=== PATIENT | male | born 1950 | race Caucasian/White ===

== ENCOUNTER → 2016-07-08 | Outpatient (CLI) | payer OTHER ==
[~2016-07-08] MED LIST: ASCO100061 PO; ASPI81TA28 PO; COEN1CAP17 PO; CRS20 PO; FELO10TA2 PO; HYDC25 PO; MULT-513 PO; POTA10CA28 PO; PRLSR20 PO; PRS5 PO
[2016-07-08 13:41] LABS: BLOOD UREA NITROGEN 19 mg/dl (7-18); BUN/CREATININE RATIO 21.7 (10-20); CALCIUM 8.7 mg/dl (8.5-10.1); CARBON DIOXIDE 29 mmol/L (21-32); CHLORIDE 101 mmol/L (98-107); CREATININE 0.88 mg/dl (0.60-1.40); GLUCOSE 178 mg/dl (70-99); POTASSIUM 3.7 mmol/L (3.5-5.1); SODIUM 140 mmol/L (136-145)
[2016-07-08 14:02] LABS: ESTIMATED AVERAGE GLUCOSE 148 mg/dl; HA1C FLAG Normal (Normal)
== END | disposition home or self-care (01) ==
LOC: C.LABPVFM 08:34
PROVIDERS: ATTEND Nurse Practitioner
DX: E11.9 Type 2 diabetes mellitus without complications (principal); I10 Essential (primary) hypertension

== ENCOUNTER → 2017-01-29 | Outpatient (CLI) | payer OTHER ==
[2017-01-29 13:45] LABS: BLOOD UREA NITROGEN 17 mg/dl (7-18); BUN/CREATININE RATIO 16.9 (10-20); CALCIUM 9.4 mg/dl (8.5-10.1); CARBON DIOXIDE 30 mmol/L (21-32); CHLORIDE 102 mmol/L (98-107); GLUCOSE 168 mg/dl (70-99); POTASSIUM 3.5 mmol/L (3.5-5.1); SODIUM 138 mmol/L (136-145)
[2017-01-29 13:48] LABS: CHOLESTEROL 152 mg/dl (0-200); CHOLESTEROL/HDL RATIO 3.6; ESTIMATED AVERAGE GLUCOSE 163 mg/dl; HA1C FLAG Normal (Normal); HDL CHOLESTEROL 42 mg/dl; LDL CHOLESTEROL CALCULATED 82 mg/dl; TRIGLYCERIDES 139 mg/dl (0-150); VERY LOW DENSITY LIPOPROT CALC 28 mg/dl
== END | disposition home or self-care (01) ==
LOC: C.LABPVFM 08:11
PROVIDERS: ATTEND Nurse Practitioner
DX: I10 Essential (primary) hypertension (principal); E11.9 Type 2 diabetes mellitus without complications; E78.00 Pure hypercholesterolemia, unspecified

== ENCOUNTER → 2017-05-21 | Outpatient (CLI) | payer OTHER ==
--- NOTE | 2017-05-21 08:24 | DIAGNOSTIC IMAGING REPORT ---
ABDOMEN LIMITED (US) CLINICAL HISTORY: 67 years-old Male presenting with R10.811 Right upper quadrant abdominal tenderness. TECHNIQUE: Real-time grayscale and limited color Doppler ultrasound imaging of the abdomen limited to the right upper quadrant was performed. COMPARISON: 07/08/2011. FINDINGS: Pancreas: Visualized portions of the pancreatic head and body normal. Liver: Redemonstration of lobular simple appearing hepatic cyst in the right hepatic lobe measuring 6.3 x 4.9 x 4.8 cm. Remainder of liver parenchyma normal in echogenicity and echotexture. Main portal vein patent with normal directional flow. Biliary: No intrahepatic biliary ductal dilatation. Common bile duct measures up to 3 mm in diameter. Gallbladder: Small echogenic dependent 7 mm focus in the gallbladder without definite shadowing, possibly gallstones versus cholesterol polyp. Right kidney: Exophytic 2.4 centimeter cyst at the interpolar region of the right kidney. Additional cyst noted at the lower pole. No hydronephrosis. Ascites: None. IMPRESSION: No sonographic evidence of acute pathology in the right upper quadrant. Subcentimeter gallbladder cholesterol polyp versus gallstone. No biliary ductal dilatation or evidence of cholecystitis. Electronically signed by: Tejas Parker M.D. 05/21/2017 8:23 AM Dictated Date/Time: 05/21/2017 8:19 AM
== END | disposition home or self-care (01) ==
LOC: C.ULTR 07:36
PROVIDERS: ATTEND Family Medicine
DX: R10.811 Right upper quadrant abdominal tenderness (principal)

== ENCOUNTER → 2017-05-24 | Outpatient (CLI) | payer OTHER | END | disposition home or self-care (01) | LOC: C.LABPVFM 08:18 | PROVIDERS: ATTEND Family Medicine | DX: K76.89 Other specified diseases of liver (principal) ==

== ENCOUNTER → 2017-05-31 | Outpatient (CLI) | payer OTHER ==
--- NOTE | 2017-05-31 07:36 | DIAGNOSTIC IMAGING REPORT ---
CT SCAN OF THE ABDOMEN AND PELVIS WITHOUT CONTRAST CLINICAL HISTORY: HEPATIC CYST COMPARISON STUDY: Ultrasound dated 05/21/2017, CT scan dated 07/01/2007 TECHNIQUE: CT scan of the abdomen and pelvis was performed from the lung bases to the proximal femurs. Images are reviewed in the axial, sagittal, and coronal planes. IV contrast was not administered for this examination. A dose lowering technique was utilized adhering to the principles of ALARA. CT DOSE: 579.90 mGy.cm FINDINGS: Lower chest: There is trace pericardial fluid. There are minor dependent atelectatic changes. Liver: There is a 7 cm right lobe hepatic cyst. There is a to small to characterize 6 mm hypodensity within the right lobe of the liver immediately beneath the dome of the diaphragm. This likely represents a second cyst. Gallbladder: Cholelithiasis Spleen: There is splenic masses are visualized. Surgical clips are visualized at the inferior aspect of the spleen Pancreas: Unremarkable. Adrenal glands: There are surgical clips the region of the left adrenal gland. The patient appears be status post adrenalectomy. The right adrenal gland is unremarkable in appearance Kidneys: No renal, ureteral, or bladder calculi are visualized. There is a 24 mm mid pole right renal cyst. The 17 mm lower pole right renal cyst. Bowel: There are no transition zones indicate bowel obstruction. There is colonic diverticulosis. There are no acute peridiverticular inflammatory changes. By history the appendix is surgically absent. Peritoneum: There is a fat-containing left inguinal hernia. There is no free air. There is no ascites Vasculature: The abdominal aorta is normal in course and caliber. Adenopathy: None. Pelvic viscera: There is mild prostamegaly. There is minor bladder wall thickening. Skeletal structures: No destructive osseous lesions are seen. IMPRESSION: 1. Postsurgical changes of a prior adrenalectomy 2. Hepatic cysts, the largest of which measures 7 cm 3. Cholelithiasis 4. Right renal cysts 5. No evidence of bowel obstruction. No evidence of free air Electronically signed by: Emmanuel Owusu M.D. 05/31/2017 7:35 AM Dictated Date/Time: 05/31/2017 7:29 AM
== END | disposition home or self-care (01) ==
LOC: C.CTS 07:07
PROVIDERS: ATTEND Family Medicine
DX: K76.89 Other specified diseases of liver (principal); R10.11 Right upper quadrant pain; R93.2 Abnormal findings on diagnostic imaging of liver and biliary tract; Z90.89 Acquired absence of other organs; K80.20 Calculus of gallbladder without cholecystitis without obstruction; N28.1 Cyst of kidney, acquired

== ENCOUNTER → 2017-07-26 | Outpatient (CLI) | payer OTHER | END | disposition home or self-care (01) | LOC: C.LABPVFM 09:40 | PROVIDERS: ATTEND Nurse Practitioner | DX: Z87.898 Personal history of other specified conditions (principal) ==

== ENCOUNTER → 2018-02-08 | Outpatient (CLI) | payer OTHER ==
[2018-02-08 13:17] LABS: BLOOD UREA NITROGEN 19 mg/dl (7-18); CREATININE 0.75 mg/dl (0.60-1.40); GLUCOSE 153 mg/dl (70-99)
[2018-02-08 13:18] LABS: ALKALINE PHOSPHATASE 50 U/L (45-117); ALT/SGPT 27 U/L (12-78); AST/SGOT 24 U/L (15-37); CALCIUM 9.1 mg/dl (8.5-10.1); CARBON DIOXIDE 29 mmol/L (21-32); HEMOGLOBIN A1C 6.2 % (4.5-5.6); POTASSIUM 3.4 mmol/L (3.5-5.1); SODIUM 138 mmol/L (136-145); TOTAL PROTEIN 7.5 gm/dl (6.4-8.2)
== END | disposition home or self-care (01) ==
LOC: C.LABPVFM 07:48
PROVIDERS: ATTEND Nurse Practitioner
DX: E78.00 Pure hypercholesterolemia, unspecified (principal); E11.9 Type 2 diabetes mellitus without complications

== ENCOUNTER 2021-01-10 06:24 | Observation (INO) ==
--- NOTE | 2020-12-24 16:39 | PAT Medication Instructions ---
Medication Instructions Date of Service December 24, 2020 Home Medications Medication Instructions Recorded rosuvastatin 20 mg tablet 20 mg PO QPM #90 tab 06/04/20 doxycycline monohydrate 100 mg 100 mg PO BID #14 cap 06/11/20 capsule aspirin 81 mg tablet,delayed release 81 mg PO HS coenzyme Q10 100 mg capsule 100 mg PO QAM multivitamin 1 tab PO QAM alogliptin 25 mg tablet 25 mg PO QAM glucosamine-chondroitin 250 mg-200 mg tablet 2 tab PO QAM rosuvastatin 20 mg tablet 20 mg PO QPM doxycycline monohydrate 100 mg capsule 100 mg PO BID ascorbic acid (vitamin C) [Vitamin C] 1,000 mg PO HS epinephrine 0.3 ml IM UD PRN felodipine 10 mg PO HS finasteride 5 mg PO QAM ketoconazole 1 applic TOPICAL WK PRN lisinopril 10 mg PO QAM omeprazole 20 mg PO QAM Continue as directed doxycycline monohydrate 100 mg capsule 100 mg PO BID epinephrine 0.3 ml IM UD PRN (if needed) STOP taking 2 weeks before surgery coenzyme Q10 100 mg capsule 100 mg PO QAM glucosamine-chondroitin 250 mg-200 mg tablet 2 tab PO QAM STOP taking 24 hours before surgery ketoconazole 1 applic TOPICAL WK PRN DO NOT take the morning of surgery multivitamin 1 tab PO QAM alogliptin 25 mg tablet 25 mg PO QAM lisinopril 10 mg PO QAM Take morning of surgery With a small sip of water, OTHERWISE NOTHING TO EAT OR DRINK AFTER MIDNIGHT: finasteride 5 mg PO QAM omeprazole 20 mg PO QAM Take evening before surgery aspirin 81 mg tablet,delayed release 81 mg PO HS (unless surgeon directs otherwise) rosuvastatin 20 mg tablet 20 mg PO QPM ascorbic acid (vitamin C) [Vitamin C] 1,000 mg PO HS felodipine 10 mg PO HS Other Notes If you have any questions please call us at [phone] or [phone] or [phone] or [phone]
--- NOTE | 2020-12-26 11:42 | Anesthesiology Consultation ---
Date of Service December 26, 2020 Assessment & Plan (1) Encounter for pre-operative examination: Chart Review Chart Review: Acceptable Risk for Surgery (pending cardio office visit note from 12/27/20 and preop Covid testing results ) and Patient seen in Pre Admission Testing Awaiting cardio appt scheduled 12/27/20 - Check BSG AM DOS Per PAT appointment 12/26/2020, patient denies any recent travel. Wears proper PPE when required. Patient vaccinated for Covid. No known Covid infection in the past 90 days. No known Covid positive contacts or Covid related symptoms. Preop Covid testing scheduled 01/08/21= will await results. Educated on importance of self quarantining, social distancing and wearing mask in public both for the patient after Covid testing done Teaching & Discussion Pre-Anesthesia Teaching/Discussion Notes: Instructed NPO after midnight before surgery,except medications with 15 cc of water. Medication instructions provided according to the [facility] guidelines. History Surgery Operation Date: 01/10/21 11:30 Proposed Procedures p Right Total Shoulder Arthroplasty Jada - Bill Medrano DO Height/Weight Height: 5 ft 9.5 in Weight: 82.3 kg Allergies Allergy/AdvReac Type Severity Reaction Status Date / Time bee venom protein (honey bee) Allergy Severe ANAPHYLAXIS Verified 12/24/20 07:09 metformin AdvReac Intermediate Abdominal Verified 12/24/20 07:10 Pain Iodinated Contrast Media AdvReac Unknown contraindicated Verified 12/24/20 07:09 /had adrenal gland removed Medications Home Medications Medication Instructions Recorded Confirmed Last Taken aspirin 81 mg tablet,delayed 81 mg PO HS tab 01/21/19 12/24/20 Unknown release coenzyme Q10 100 mg capsule 100 mg PO QAM cap 01/21/19 12/24/20 Unknown multivitamin 1 tab PO QAM 01/21/19 12/24/20 Unknown alogliptin 25 mg tablet 25 mg PO QAM 01/27/19 12/24/20 Unknown glucosamine-chondroitin 250 mg-200 2 tab PO QAM tab 02/10/19 12/24/20 Unknown mg tablet rosuvastatin 20 mg tablet 20 mg PO QPM #90 tab 06/04/20 12/24/20 Unknown doxycycline monohydrate 100 mg 100 mg PO BID #14 cap 06/11/20 12/24/20 Unknown capsule ascorbic acid (vitamin C) [Vitamin 1,000 mg PO HS 12/24/20 12/24/20 Unknown C] epinephrine 0.3 ml IM UD PRN 12/24/20 12/24/20 Unknown felodipine 10 mg PO HS 12/24/20 12/24/20 Unknown finasteride 5 mg PO QAM 12/24/20 12/24/20 Unknown ketoconazole 1 applic TOPICAL WK PRN 12/24/20 12/24/20 Unknown lisinopril 10 mg PO QAM 12/24/20 12/24/20 Unknown omeprazole 20 mg PO QAM 12/24/20 12/24/20 Unknown Past Medical History Medical History (Updated 12/27/20 @ 08:56 by Urvashi Chapman PA-C) Acid reflux disease Well controlled and stable Allergic rhinitis Concussion 2015- significant Does have residual issues with equilibrium occasionally on uneven surfaces Diabetes mellitus, type 2 NIDDM Glucose fluctuates Hepatic cyst Monitors annually- currently under observation with GI History of COVID-19 05/2020. tested positive through [facility]. sinus congestion and chest cold and fatigue. still will notice he will get SOB with exertion. no hospitalization. 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- no issues since that time Hypercholesterolemia Hypertension Osteoarthritis Exercise / Class Metabolic Activity II 4-5 Yardwork/Stairs/Walk up hill (one flight of stairs - no chest pain or SOB ) Past Family History Family History Son Bipolar disorder Father Coronary heart disease Myocardial infarction Mother Blood dyscrasia Grandfather (Maternal) Diabetes Other Heart disease Hypertension No family history of adverse response to anesthesia Denies family history of Ovarian cancer Prostate cancer Breast cancer Colorectal cancer Past Surgical History Surgical History H/O arthroscopy of left knee History of appendectomy History of colonoscopy History of esophagogastroduodenoscopy (EGD) History of right inguinal hernia repair (~2011) History of total adrenalectomy (~2007) [facility] Past Anesthesia History No Hx of Anesthesia Complications and No Family Hx of Anesthesia Complications History of PONV No Hx of PONV and No Hx of Motion Sickness Social History Smoking Status: Former smoker tobacco type: cigarettes Do You Dip or Chew Tobacco: No Smoking End Date: Hx Alcohol Use: Yes Alcohol type: beer alcohol intake frequency: holidays/special occasions only Hx Substance Use: No substance use type: does not use Review of Systems Occ palpitations - stable Patient denies chest pain, shortness of breath, dyspnea on exertion, cough, wheezing, palpitations. No hx of seizures, stroke, CT, apnea/snoring. No hx of blood clots or blood transfusions Physical Exam Vital Signs VITALS BP 138/82 P 85 TEMP 98.0 SP02 96% RESP 16 Constitutional no acute distress ENMT Mouth: no TMJ clicking Thyromental Distance: > or= 3.5 Finger Breadths (3.5) Mallampati Class: III Mouth / Teeth: 1. Permanent implant 2. Permanent implant 3. Permanent implant 4. Missing 5. [place] Missing molars Neck + limited neck extension (minimal ) Respiratory normal respiratory effort; no respiratory distress Auscultation: lungs clear to auscultation bilaterally; no wheezes Cardiovascular Rate/Rhythm: regular rate and regular rhythm Heart Sounds: no murmur Vessels: no carotid bruit Musculoskeletal Spine: no pain with cervical ROM Extremities: extremities normal to inspection Psychiatric Orientation: alert Lab Results Anesthesia Preop Results Results Anesthesia Widget: 2 WBC 7.73 K/uL (4.8-10.8) 12/26/20 Hgb 15.3 g/dL (14.0-18.0) 12/26/20 Hct 43.1 % (42-52) 12/26/20 Plt 207 K/uL (130-400) 12/26/20 Na 138 mmol/L (136-145) 12/26/20 K 3.7 mmol/L (3.5-5.1) 12/26/20 Cl 103 mmol/L (98-107) 12/26/20 CO2 32 mmol/L (21-32) 12/26/20 BUN 20 mg/dl (7-18) H 12/26/20 Creat 0.77 mg/dl (0.6-1.4) 12/26/20 Glucose Level 129 mg/dl (70-99) H 12/26/20 PT 9.7 Seconds (9.0-12.0) 12/26/20 PTT 23.2 Seconds (21.0-31.0) 12/26/20 INR 1.0 (0.9-1.1) 12/26/20 HA1c 6.6 % (4.5-5.6) H 12/26/20 Blood Type A Positive 12/26/20 Antibody Screen NEGATIVE 12/26/20 Testing Electrocardiogram Date: 12/26/20 Findings: + NSR @ (83bpm) Normal EKG per cardio. Chest X-Ray Date: 12/26/20 Findings: + NAD
--- NOTE | 2021-01-09 11:10 | History & Physical Report ---
Date of Service January 09, 2021 Assessment & Plan (1) Rotator cuff tear, right: We will proceed with a right reverse shoulder arthroplasty. Postoperatively he will be placed in a sling and kept overnight in the hospital for postoperative medical management. He plans to use energy physical therapy upon discharge. History of Present Illness Chief Complaint: Cuff arthropathy of the right shoulder. Primary Care Provider: JARED Hatfield Sukhdev is a pleasant 70-year-old male who had an injury to his right shoulder while bowling and then another injury while coughing. He has very limited range of motion of his shoulder. MRI showed a large retracted rotator cuff tear and significant atrophy of the supraspinatus and infraspinatus. There was some arthritis of the glenohumeral joint. After failing conservative treatment, he elected proceed with a right reverse shoulder arthroplasty.. Allergies Allergy/AdvReac Type Severity Reaction Status Date / Time bee venom protein (honey bee) Allergy Severe ANAPHYLAXIS Verified 12/27/20 10:58 metformin AdvReac Intermediate Abdominal Verified 12/27/20 10:58 Pain Iodinated Contrast Media AdvReac Unknown contraindicated Verified 12/27/20 10:58 /had adrenal gland removed Home Medications Medication Instructions Recorded Confirmed Type aspirin 81 mg tablet,delayed 81 mg PO HS tab 01/21/19 12/27/20 History release coenzyme Q10 100 mg capsule 100 mg PO QAM cap 01/21/19 12/27/20 History multivitamin (Daily Multi-Vitamin) 1 tab PO QAM 01/21/19 12/27/20 History alogliptin 25 mg tablet (Nesina) 25 mg PO QAM 01/27/19 12/27/20 History glucosamine-chondroitin 250 mg-200 2 tab PO QAM tab 02/10/19 12/27/20 History mg tablet (Osteo Bi-Flex) rosuvastatin 20 mg tablet 20 mg PO QPM #90 tab 06/04/20 12/27/20 Rx ascorbic acid (vitamin C) 1,000 mg 1,000 mg PO HS 12/24/20 12/27/20 History tablet,extended release (Vitamin C ER) epinephrine 0.3 mg/0.3 mL 0.3 ml IM UD PRN 12/24/20 12/27/20 History injection, auto-injector felodipine 10 mg tablet,extended 10 mg PO HS 12/24/20 12/27/20 History release 24 hr finasteride 5 mg tablet 5 mg PO QAM 12/24/20 12/27/20 History ketoconazole 1 % shampoo 1 applic TOPICAL WK PRN 12/24/20 12/27/20 History lisinopril 10 mg tablet 10 mg PO QAM 12/24/20 12/27/20 History omeprazole 20 mg capsule,delayed 20 mg PO QAM 12/24/20 12/27/20 History release diclofenac sodium 75 mg 75 mg PO BID 12/27/20 12/27/20 History tablet,delayed release Past Med/Surg History Medical History Acid reflux disease Well controlled and stable Allergic rhinitis Concussion 2016- significant Does have residual issues with equilibrium occasionally on uneven surfaces Diabetes mellitus, type 2 NIDDM Glucose fluctuates Hepatic cyst Monitors annually- currently under observation with GI History of COVID-19 05/2020. tested positive through [facility]. sinus congestion and chest cold and fatigue. still will notice he will get SOB with exertion. no hospitalization. 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- no issues since that time Hypercholesterolemia Hypertension Osteoarthritis Surgical History H/O arthroscopy of left knee History of appendectomy History of colonoscopy History of esophagogastroduodenoscopy (EGD) History of right inguinal hernia repair (~2011) History of total adrenalectomy (~2007) [facility] [place] Family History Son Bipolar disorder Father Coronary heart disease Myocardial infarction Mother Blood dyscrasia Grandfather (Maternal) Diabetes Other Heart disease Hypertension No family history of adverse response to anesthesia Denies family history of Ovarian cancer Prostate cancer Breast cancer Colorectal cancer Social History Smoking Status: Former smoker Second Hand Exposure: No; Hx Alcohol Use: Yes Alcohol type: beer Hx Substance Use: No Preferred Language: Croatian Communication Ability: Effective Pearl Hand Required: No Beliefs That Will Affect Care: None marital status: Current Living Situation: Spouse current occupational status: retired Feels Safe at Home: Yes Childhood Exposure to Second-Hand Smoke: No caffeine: Yes Dental Care, Regularly: Yes Physical Activity Frequency: 3-4 Times per Week Seatbelt Use: always Sunscreen Use: Yes Assistive Devices: Glasses and Hearing Aid - Bilateral Review of Systems All systems reviewed & are unremarkable except as noted in HPI & below. Physical Exam On physical examination of the right shoulder, he has near full range of motion. He has 4-5 motor strength with full can testing 4-5 motion with external rotation. Is a negative belly press test.. Constitutional WD/WN, vitals as above Eyes PERRL, conjunctivae normal, anicteric sclerae ENMT external ear and nose normal, oropharynx normal Neck trachea midline, no thyromegaly Respiratory normal respiratory effort Cardiovascular RRR, no murmur, no edema Gastrointestinal (Abdomen) normal bowel sounds, soft, nontender, no hepatosplenomegaly Psychiatric A+Ox3, euthymic affect Results & Data Results & Data Laboratory Results . Diagnostic Findings MRI of the right shoulder does show a large necrotic retracted rotator cuff tear. There is some moderate arthritis of the glenohumeral joint.. PG Care Time/CCT Total # of Minutes Spent Total Time Spent with Patient: Total time spent is greater than 50% in coordination of care (as documented) at patient's floor/unit and/or counseling patient: Coding Level of Care Code None Diagnoses Rotator cuff tear, right M75.101
[~2021-01-10 06:24] MED LIST changes: +ACETAMINOPHEN 500 MG TAB PO SCH; -ASCO100061 PO; -ASPI81TA28 PO; -COEN1CAP17 PO; -CRS20 PO; +FAMOTIDINE 20 MG TAB PO SCH; -FELO10TA2 PO; +GABAPENTIN 300 MG CAP PO SCH; -HYDC25 PO; +LR 15ML/HR IV SCH; +LR 60ML/HR IV SCH; -MULT-513 PO; -POTA10CA28 PO; -PRLSR20 PO; -PRS5 PO; +ROPIVACAINE 0.5% HCL/PF 150 MG, BUPIVACAINE 0.75% MPF 20 ML, EPINEPHrine 30MG/30ML (OR ... INSTIL SCH; +TRANEXAMIC ACID 1,000 MG **IV Intra-op IV SCH; +TRANEXAMIC ACID 1,000 MG **IV Pre-op IV SCH; +ceFAZolin 2000MG 2,000 MG/15 ML SYR IV SCH; +dexAMETHasone 4 MG TAB PO SCH
[2021-01-10] MEDS ORDERED: BUPIVACAINE 0.5 % 5 MG/1 ML PF 10ML VIAL ONE (06:33)
[2021-01-10] MEDS ORDERED: fentaNYL citrate 100 MCG/2 ML VIAL IV PRN (07:59)
[2021-01-10] MEDS ORDERED: PHENYLEPHRINE 100MCG/ML 5ML SYR IV PRN (07:59)
[2021-01-10] MEDS ORDERED: ONDANSETRON INJ 2 MG/ML 2 ML VIAL IV PRN ×2 (07:59→12:58)
[2021-01-10] MEDS ORDERED: HYDROmorphone INJ 1 MG/ML SYRINGE IV PRN (07:59)
[2021-01-10] MEDS ORDERED: MEPERIDINE HCL 25 MG/ML CARP/VIAL IV PRN (07:59)
[2021-01-10] MEDS ORDERED: ePHEDrine sulfate 50 MG/ML AMP IV PRN (07:59)
[2021-01-10] MEDS ORDERED: LABETALOL HCL IV 5 MG/ML 20ML IV PRN (07:59)
[2021-01-10] MEDS ORDERED: ATROPINE SULFATE 0.1 MG/ML 10ML SYR IV PRN (07:59)
[2021-01-10] MEDS ORDERED: MIDAZOLAM HCL 1 MG/ML 2ML VIAL ONE (08:30)
[2021-01-10] MEDS ORDERED: fentaNYL citrate 100 MCG/2 ML VIAL ONE (08:31)
--- NOTE | 2021-01-10 08:31 | History & Physical Bridge Note ---
Date of Service January 10, 2021 History & Physical Bridge Note I have examined the patient, reviewed the History & Physical and in the interval since the performance of the History & Physical I have noted the following changes of clinical significance: no changes noted
[2021-01-10] MEDS ORDERED: ORTHO JOINT ANESTHETIC ONE (08:59)
[2021-01-10] MEDS ORDERED: PROPOFOL IV EMULSION 10 MG/ML 20 ML VIAL IV ONE (09:01)
[2021-01-10] MEDS ORDERED: ONDANSETRON INJ 2 MG/ML 2 ML VIAL ONE (09:01)
[2021-01-10] MEDS ORDERED: LIDOCAINE 2% 2 ML VIAL/AMP(20MG/ML) INFIL ONE (09:01)
[2021-01-10] MEDS ORDERED: DEXAMETHASONE SOD INJ 4 MG/ML VIAL ONE (09:01)
[2021-01-10] MEDS ORDERED: PHENYLEPHRINE 100MCG/ML 5ML SYR ONE (09:51)
[2021-01-10] MEDS ORDERED: PHENYLEPHRINE HCL 10 MG/ML VIAL ONE (10:49)
[2021-01-10] MEDS ORDERED: ePHEDrine sulfate 50 MG/ML SYR ONE (10:49)
--- NOTE | 2021-01-10 10:54 | Operative Report ---
PG Post Operative Report Pre & Post Diagnosis Operation Date: 01/10/21 08:40 Pre-Op Diagnosis: Right shoulder cuff tear arthropathy with tendinopathy long head of the biceps tendon Post-Op Diagnosis: Right shoulder cuff tear arthropathy with tendinopathy of the long head of the biceps tendon I identified the patient and participated in the time-out.: Yes Procedure Operation Date: 01/10/21 08:40 Actual Procedures p Right reverse shoulder arthroplasty uncemented(Right) with open biceps tenodesis as a distinct and separate procedure (modifier 59)- Bill Medrano, Surgeon Bill Medrano, Medicine Assistant Bill Barbosa PAC Estimated Blood Loss 200 Findings Consistent with Post-Op Diagnosis Specimens Right humeral head Complications none Disposition Disposition: Recovery Room Indications Sukhdev is a pleasant 70-year-old male who is been dealing with worsening right shoulder pain and weakness. He injured it while bowling and golfing. MRI showed a large retracted rotator cuff tear. After discussing possible treatment options, we elected proceed with a right reverse shoulder arthroplasty. Description of Procedure A CPT code modifier 59: The long head of the biceps tendon was enlarged and inflamed consistent with tendinopathy. A tenodesis was opted. This was a separate and distinct portion of the procedure. For these reasons, a CPT code modifier 59 will be added to this case. Implants used: I used a Biomet Comprehensive reverse total shoulder arthroplasty system with a size 14 press fit micro humeral stem, a +3 offset humeral tray and a standard humeral bearing, a 25 mm small augment baseplate with a 6.5 mm central screw and superior and inferior locking screws, and a size 40 mm eccentric glenosphere. Sukhdev arrived at [facility] for the above procedure. He was seen in the preoperative holding area and the operative extremity was identified and signed. He was given a preoperative antibiotic, TXA, and an interscalene nerve block. He was taken back to the operating room, laid on table in supine position, and put under general anesthesia. He was then put into the beachchair position. The shoulder was then prepped and draped in sterile fashion. A timeout was done and the patient and the operative extremity was properly identified. A deltopectoral approach was used. Dissection was taken down through the fascia and the deltoid was retracted laterally and the conjoined tendon was retracted medially. The anterior shoulder was exposed. The biceps groove was opened up and the biceps tendon was examined extensively. The biceps tendon demonstrated enlargement and inflammatory changes consistent with longstanding inflammation in the context of osteoarthritis and cuff arthropathy. The long head of the biceps tendon was then tenodesed to the upper border of the pectoralis major. This was a separate and distinct portion of the procedure. The subscapularis was then directly released off the lesser tuberosity with a peel technique. The inferior capsule was released and the humeral head was dislocated. A canal finding reamer was sent down the center of the humeral canal. Sequential reaming up to a size 14 reamer was done. Off that reamer, a proximal humeral resection guide was placed. The proximal humerus was resected at 135 of inclination and 25 of retroversion. Osteophytes were then removed and the glenoid was exposed. Time was spent doing a complete capsular and labral release. The glenoid guide was then placed in the inferior aspect of the glenoid. A 3.2 mm Steinmann pin was then placed into the glenoid vault at 10 of inclination. A ZimMythos Signature One guide was then attached onto the anterior rim of the glenoid. A 3.2 mm Steinmann pin was then placed in the reverse total shoulder arthroplasty hole. The glenoid baseplate was then reamed. The final size 25 mm small augment baseplate was then impacted in the place. A 6.5 mm central screw was then placed followed by superior and inferior locking screws. A 40 mm eccentric glenosphere was then impacted into place. Surrounding soft tissues were then injected with 100 cc an orthopedic pain control cocktail. The proximal humerus was then exposed. Sequential broaching of the humerus up to a size 14 broach was done. Off that broach a +3 offset humeral tray was trialed. The shoulder was then reduced, brought through a full range of motion, and felt to be stable. The shoulder was then dislocated and the broach was removed. The final size 14 micro press-fit humeral stem was then impacted into place. A standard humeral bearing was then snapped onto a +3 offset humeral tray. The humeral tray was then impacted onto the humeral stem. The shoulder was once again reduced, brought through a full range of motion, and felt to be stable. The subscapularis was then tenodesed back to the lesser tuberosity with transosseous FiberWire sutures and side to side sutures with the arm in 45 of external rotation. A dilute betadyne lavage was then done for 3 minutes. The joint was then irrigated with normal saline solution. Hemostasis was obtained. The interval was closed with 2-0 Vicryl suture. The skin was then closed with 2-0 Vicryl and stephanie. A Silverlon dressing was placed and the arm was rested in a regular arm sling. He was then extubated and transferred to a hospital bed. He taken to the postanesthesia care unit in stable condition. He tolerated the procedure well. Bill Barbosa PA-C, was present for the entire procedure. He was critical for patient positioning, prepping, draping, retraction exposure, wound closure and application of sterile dressing. I attest to the content of the Intraoperative Record and any orders documented therein. Any exceptions are noted below.
--- NOTE | 2021-01-10 11:47 | XRay Report ---
XR shoulder RT min 2V routine CLINICAL HISTORY: Post shoulder surgery COMPARISON: Right shoulder radiograph October 30, 2020. FINDINGS: Alignment of the reverse total right shoulder arthroplasty is anatomic. There is no peripr osthetic fracture. There is no unexpected radiopaque foreign body. There are skin stephanie. IMPRESSION: Expected findings following total right shoulder arthroplasty. ACT 112: Negative or not required by law. Electronically signed by: Neo Rodriguez M.D. 01/10/2021 11:46 AM
[2021-01-10] MEDS ORDERED: INSULIN ASPART PER UNIT SC STA (12:00)
--- NOTE | 2021-01-10 12:03 | Anesthesiology Progress Note ---
Date of Service January 10, 2021 Anesthesia Post Procedure Vital Signs Vital Signs: Temp Pulse Pulse Resp BP Pulse Ox 01/10/21 11:55 88 22 117/74 92 01/10/21 11:45 87 20 120/79 96 01/10/21 11:35 90 20 135/80 98 01/10/21 11:25 90 16 132/77 98 01/10/21 11:17 36.0 C L 96 H 11 L 139/81 95 01/10/21 07:05 36.5 C 85 18 142/87 H 96 Transfer of Care Handoff Completed per policy Notes Mental Status: alert / awake / arousable Patient Amnestic to Procedure: Yes Nausea / Vomiting: adequately controlled Pain: adequately controlled Airway Patency, RR, SpO2: stable & adequate BP & HR: stable & adequate Hydration State: stable & adequate Anesthetic Complications: no major complications apparent and Pt Satisfied with anesthetic care Notes: The patient is awake and comfortable. Postop BSG was 203. He will receive Novolog 2 units SC and will have a BSG rechecked on the floor in two hours.
[2021-01-10] MEDS ORDERED: MAGNESIUM HYDROXIDE SUSP 30 ML UDC PO PRN (12:58)
[2021-01-10] MEDS ORDERED: oxyCODONE HCL IR 5 MG TAB (IMMEDIATE RELEASE) PO PRN (12:58)
[2021-01-10] MEDS ORDERED: NALOXONE HCL 0.4 MG/1 ML VIAL/CARP IV PRN (12:58)
[2021-01-10] MEDS ORDERED: HYDROmorphone INJ 0.5 MG/0.5 ML SYR IV PRN (12:58)
[2021-01-10] MEDS ORDERED: METOCLOPRAMIDE HCL INJ 5 MG/ML 2 ML VIAL IV PRN (12:58)
[2021-01-10] MEDS ORDERED: EPINEPHrine INJ 1 MG/ML AMP IM PRN (12:58)
[2021-01-10] MEDS ORDERED: bisacodyL 10 MG SUPP PR PRN (12:58)
[2021-01-10] MEDS: SODIUM CHLORIDE 0.9% 1000ML 1,000 ML IV SCH ×2 (13:01→22:40)
[2021-01-10] MEDS ORDERED: PHARMACY GLYCEMIC MGMT CONSULT PRN (13:50)
[2021-01-10] MEDS ORDERED: NovoLIN-N (NPH) PER UNIT CHARGE SQ ONE (14:15)
[2021-01-10] MEDS: ACETAMINOPHEN 500 MG TAB PO SCH ×2 (14:34→22:41)
[2021-01-10] MEDS: KETOROLAC TROMETHAMINE 15 MG/ML VIAL IV SCH ×2 (14:34→20:49)
--- NOTE | 2021-01-10 14:47 | Pharmacy Report ---
Pharmacy Glycemic Short Note 2 - Date of Service January 10, 2021 - Glycemic Short BSG Results (Last 24 hours): 01/10/21 01/10/21 01/10/21 06:43 11:28 14:28 POC Glucose 154 H 203 H 262 H OUTPATIENT ANTIDIABETIC REGIMEN: * alogliptan * A1c 6.6% ASSESSMENT: * 70 year old male now s/p R shoulder arthroplasty, type 2 diabetic managed only on oral agent at home * Received preop steroids and also intraop - therefore anticipate steroid induced hyperglycemia / will give NPH 30 units x 1 now to help with steroid coverage and then start also a stress of 3 for novolog order PLAN FOR INPATIENT GLYCEMIC CONTROL: * Hold outpatient oral diabetes medications * Basal insulin * NPH 30 units x 1 now * Bolus insulin * NovoLog per scale ACHS or Q6hrs while NPO * Goal Range: Low 110 mg/dL - High 140 mg/dL * Correction Factor: 20 mg/dL/unit * Nutritional / Prandial insulin per carb ratio of 1 unit per 6 grams CHO consumed PLAN FOR DISCHARGE: * A1c 6.6% - goal <7% * Reasonable to continue home diabetic agent on discharge as long as no contraindications exist
[2021-01-10] MEDS: INSULIN ASPART 100 UNITS/ML 3 ML PEN SC SCH ×3 (15:52→20:52)
[2021-01-10] MEDS: ceFAZolin 2000MG 2,000 MG/15 ML SYR IV SCH (17:24)
[2021-01-10] MEDS: DOCUSATE SODIUM 100 MG CAP PO SCH (20:49)
[2021-01-10] MEDS ORDERED: ROSUVASTATIN CALCIUM 20 MG TAB PO SCH (21:00)
[2021-01-10] MEDS ORDERED: FELODIPINE 5 MG TABCR PO SCH (21:00)
[2021-01-10] MEDS ORDERED: ASPIRIN 81 MG ECTAB PO SCH (21:00)
[2021-01-10] MEDS ORDERED: SENNA 8.6 MG TAB PO SCH (21:00)
[2021-01-11] MEDS: INSULIN ASPART 100 UNITS/ML 3 ML PEN SC SCH ×3 (00:12→09:27)
[2021-01-11] MEDS: KETOROLAC TROMETHAMINE 15 MG/ML VIAL IV SCH ×2 (01:49→08:16)
[2021-01-11] MEDS: ceFAZolin 2000MG 2,000 MG/15 ML SYR IV SCH (01:49)
[2021-01-11 03:05] VITALS: O2SAT 94
[2021-01-11] MEDS: ACETAMINOPHEN 500 MG TAB PO SCH (06:05)
--- NOTE | 2021-01-11 07:45 | Orthopedic Progress Note ---
Date of Service January 11, 2021 Assessment & Plan (1) Status post reverse arthroplasty of right shoulder: Overall is doing well. Is not having much pain in the right shoulder. He will be seen by physical therapy today for ambulation and range of motion exercises. He can be discharged home later today. He will follow-up with orthopedics in 2 weeks. Joshua Santizo was seen and examined at bedside this morning. Overall is doing very wel l. Is not having any pain in the right shoulder. The block is wearing off. He has a pinpoint area of tenderness in the central aspect of his back. Otherwise he has no complaints.. Review of Systems All systems reviewed & are unremarkable except as noted in HPI & below. Physical Exam On physical examination of his right shoulder, the dressing is clean and dry. He is wearing his sling as instructed. His radial, median, and ulnar nerves are checked intact at his wrist. His axillary nerve was not checked yet.. Results & Data Results & Data Laboratory Results . Diagnostic Findings Postoperative x-rays of the right shoulder show the prosthesis to be in anatomic alignment without any evidence of fracture, dislocation, or loosening. PG Care Time/CCT Total # of Minutes Spent Total Time Spent with Patient: Total time spent is greater than 50% in coordination of care (as documented) at patient's floor/unit and/or counseling patient: Coding Level of Care Code 74105 Post Operative Follow-Up Diagnoses Status post reverse arthroplasty of right shoulder Z96.611
--- NOTE | 2021-01-11 07:46 | Discharge Summary ---
Date of Service January 11, 2021 Admission HPI (Per Admitting) Sukhdev is a pleasant 70-year-old male who had an injury to his right shoulder while bowling and then another injury while coughing. He has very limited range of motion of his shoulder. MRI showed a large retracted rotator cuff tear and significant atrophy of the supraspinatus and infraspinatus. There was some arthritis of the glenohumeral joint. After failing conservative treatment, he elected proceed with a right reverse shoulder arthroplasty.. Admission Exam (Per Admitting) On physical examination of the right shoulder, he has near full range of motion. He has 4-5 motor strength with full can testing 4-5 motion with external rotation. Is a negative belly press test.. Principal Diagnosis Same as "Discharge Diagnosis" noted below under Discharge Instructions. Discharge Exam On physical examination of his right shoulder, the dressing is clean and dry. He is wearing his sling as instructed. His radial, median, and ulnar nerves are checked intact at his wrist. His axillary nerve was not checked yet.. Discharge Data Procedures Performed Operation Date: 01/10/21 08:40 Actual Procedures p Right Total Shoulder Arthroplasty Reverse, Uncemented(Right) - Bill ahuja DO Ordered Studies 01/10/21 05:00 US - OR guided needle placemen Routine Hospital Course (1) Status post reverse arthroplasty of right shoulder: On January 10, 2021 Sukhdev arrived to [facility] and underwent a right reverse shoulder replacement without complication. He had a general anesthetic and a right interscalene nerve block. Postoperatively he was placed in a sling and transferred to the general orthopedic floors. His hospital course was uneventful. On postop day #1 his vital signs were stable and his pain was well controlled. He was able to participate well with physical therapy doing ambulation and range of motion exercises. He was then discharged home. He will follow-up with orthopedics in 2 weeks. PG Care Time/CCT Total # of Minutes Spent Total Time Spent with Patient: Total time spent is greater than 50% in coordination of care (as documented) at patient's floor/unit and/or counseling patient: Discharge Plan Discharge Items Patient Disposition: Home - Home Health Services Reason For Visit: Right Shoulder Degenerative Joint Disease Discharge Diagnosis: Right reverse shoulder replacement Activity: As commented below Non-emergency contact: Surgeon Call non-emergency contact if: your wound has increased redness and your wound has increased drainage Follow-up/Referrals: Jennifer Back CRNP [Primary Care Provider] - Diet: Regular Addtl Attending Provider Instructions: Activity and Therapy Recommendations: * If you are using [facility] then therapy will be provided at your home until they feel you have accomplished all of your goals. * If you are using [facility] then Physical Therapy will be provided until they feel you are ready to start Outpatient Physical Therapy. * If you are not using home therapy then Outpatient Physical Therapy should start about 3-5 days from your day of surgery. Therapy will last about 8-12 weeks * Wear your sling for 3 weeks, unless otherwise instructed. You may remove your sling to shower and to dress, but otherwise, you should be in your sling at all times, including while sleeping * The shoulder replacement is very stable and you can use your hand while in the sling * You were shown a series of exercises in the hospital. Do these exercises daily including the exercises you were shown in physical therapy. Medications: * Narcotic You will likely be sent home from the hospital with a prescription for the narcotic pain medication that worked best throughout your stay. * Other medications may be prescribed for specific circumstances. If you have any questions, please call the office at . * Resume previous home medications unless otherwise instructed Dressing Care: Leave the Silverlon dressing in place for 7 days. After 7 days you may remove the dressing. If the incision is not draining then you may leave the stephanie open to air. If there is a little bit of drainage or if the stephanie are getting stuck on your clothing then cover the incision with a dry dressing. The stephanie will be removed at your 2 week follow-up appointment. Showering: You may shower with the Silverlon dressing in place. Do not let the shower spray hit the dressing directly. Pat the Silverlon dressing dry. If the dressing becomes wet underneath, then simply remove the dressing. Keep the incision dry until you are 7 days out from the day of surgery. After 7 days you may remove the Silverlon dressing and shower with the stephanie exposed. Let soapy water run over the stephanie and pat them dry. Do not scrub or soak the incision. Things To Watch For: * Drainage from the incision site that occurs more than one week after your surgery. * Increased redness at the incision site. * Fever above 102 degrees Fahrenheit. * Unusual chest pain or shortness of breath. * Call [facility] at with any of the above problems Follow-Up Visit: Follow-up with Dr. Medrano's PA (Bill Barbosa) 2-3 weeks after your day of surgery. He will remove your stephanie and answer any questions. If you have any additional questions or concerns, Dr Medrano is usually in the office at the same time and will be available An appointment was probably scheduled when you signed-up for surgery in the office. If you have any questions call More detailed instructions as well as Frequently Asked Questions were provided in a folder by our office when you signed-up for surgery. Please review these instructions when you get home. If you have any further questions or concerns, please feel free to call the office at [phone] Pending Studies at Discharge: No Stand-Alone Forms: My [facility], Smoking Cessation Medications and DC Order Prescriptions: New oxycodone 5 mg Tablet 5 mg PO Q4H PRN (Reason: pain) Qty: 30 RF: 0 Continued rosuvastatin 20 mg tablet 20 mg PO QPM Qty: 90 RF: 3 aspirin 81 mg tablet,delayed release (DR/EC) 81 mg PO HS RF: 0 coenzyme Q10 100 mg capsule 100 mg PO QAM RF: 0 multivitamin [Daily Multi-Vitamin] tablet 1 tab PO QAM RF: 0 alogliptin [Nesina] 25 mg tablet 25 mg PO QAM RF: 0 glucosamine-chondroitin [Osteo Bi-Flex] 250-200 mg tablet 2 tab PO QAM RF: 0 Vitamin C 1,000 mg Tablet Extended Release 1,000 mg PO HS RF: 0 ketoconazole 1 % Shampoo 1 applic TOPICAL WK PRN (Reason: Skin Irritation) RF: 0 lisinopril 10 mg tablet 10 mg PO QAM RF: 0 omeprazole 20 mg capsule,delayed release(DR/EC) 20 mg PO QAM RF: 0 felodipine 10 mg tablet extended release 24 hr 10 mg PO HS RF: 0 epinephrine 0.3 mg/0.3 mL auto-injector 0.3 ml IM UD PRN (Reason: Allergic Reaction) RF: 0 finasteride 5 mg tablet 5 mg PO QAM RF: 0 Discharge Orders: Discharge Order (Routine); Ordered 01/11/21 Ordered By: Bill Medrano Admission Data Admit Date/Time: 01/10/21 11:16 Attending Provider: Bill Medrano Admit Provider: Bill Medrano Primary Care Provider: Jennifer Back
[2021-01-11] MEDS ORDERED: dexAMETHasone 4 MG TAB PO SCH (08:00)
[2021-01-11 08:14] VITALS: BP 145/82; PULSE 91; TEMP 97.9
[2021-01-11] MEDS: DOCUSATE SODIUM 100 MG CAP PO SCH (08:15)
[2021-01-11] MEDS ORDERED: FINASTERIDE 5 MG TAB PO SCH (09:00)
[2021-01-11] MEDS ORDERED: MULTIVITAMIN TAB PO SCH (09:00)
[2021-01-11] MEDS ORDERED: NovoLIN-N (NPH) PER UNIT CHARGE SQ ONE (09:00)
[2021-01-11] MEDS ORDERED: lisinopril 10 MG TAB PO SCH (09:00)
== END 2021-01-11 13:38 | disposition home health service (06) ==
LOC: 3E 06:24 → ASU 06:24